=== PATIENT | female | born 1990 | race Caucasian/White ===

== ENCOUNTER 2024-02-09 12:13 | Emergency (ER) | payer OTHER, SELFPAY ==
[2024-02-09 12:48] VITALS: BP 143/84; PULSE 91; RESP 18; TEMP 36.6; O2SAT 96; BMI 23.8
--- NOTE | 2024-02-09 15:48 | ED_ITS ---
HPI - Allergic Reaction <Kaylee Diaz PA-C - Last Filed: 02/09/24 19:54> General Chief complaint: Allergic Reaction Stated complaint: allergic reaction, hives Time Seen by Provider: 02/09/24 15:48 Source: patient Mode of arrival: Ambulatory History of Present Illness HPI narrative: Ms. Nowak is a pleasant 34-year-old female with no reported past medical history who presents to the emergency department for hives x4 days. Patient reports since Wednesday she has had intermittent hives develop on her neck, face, arms, legs, groin with no known allergic trigger. States that she was evaluated at [facility] twice and was initially prescribed prednisone but it was discontinued after the 3rd day due to the resolution of her symptoms. Today she returns to the emergency department for return of the hives. At this time she describes pruritic red rash on the back of her neck, right groin, left elbow, under left eye. She denies any new medications, foods, products or other environmental exposures. She is allergic to cat hair but no other known allergies. She denies any shortness of breath, difficulty breathing, mucous membrane involvement or oral swelling. Related Data Home Medications Medication Instructions Recorded Confirmed diphenhydramine HCl 50 mg capsule 25 mg PO BEDTIME 02/09/24 02/09/24 doxepin 10 mg capsule 10 mg PO Q6H PRN itch 02/09/24 02/09/24 Previous Rx's Medication Instructions Recorded epinephrine 0.3 mg/0.3 mL 0.3 mg (0.3 mL) IM Q5-15M PRN 02/09/24 injection, auto-injector anaphylaxis #2 ea Allergies Allergy/AdvReac Type Severity Reaction Status Date / Time cat dander Allergy Verified 02/09/24 12:51 Review of Systems <Kaylee Diaz PA-C - Last Filed: 02/09/24 19:54> Review of Systems ROS Unobtainable: All systems reviewed & are unremarkable except as noted in HPI and below Patient History <Kaylee Diaz PA-C - Last Filed: 02/09/24 19:54> Social History Smoking Status: Never smoker Smoking Status: Never smoker alcohol intake frequency: other Substance Use Type: does not use Exam <Kaylee Diaz PA-C - Last Filed: 02/09/24 19:54> Narrative Exam Narrative: GENERAL: 34 year old patient appears stated age. Well-developed patient, in no acute distress. HEAD: Atraumatic. Normocephalic. EYES: 1cm patch of urticaria below L eye. ENT: Oropharynx widely patent. No oropharyngeal lesions. NECK: Trachea midline. Non tender CARDIOVASCULAR: Regular rate and rhythm. RESPIRATORY: Clear to auscultation. Breath sounds equal bilaterally. No wheezes, rales, or rhonchi. EXTREMITIES: No edema or joint tenderness. NEURO: AOx3. SKIN: Urticaria on back of neck, left antecubital fossa, right lower quadrant abdomen. No lice or nits noted throughout scalp. Initial Vital Signs Initial Vital Signs: Vital Signs Temperature 98 F 02/09/24 12:48 Pulse Rate 91 H 02/09/24 12:48 Respiratory Rate 18 02/09/24 12:48 Blood Pressure 143/84 H 02/09/24 12:48 Pulse Oximetry 96 02/09/24 12:48 Oxygen Delivery Method Room Air 02/09/24 12:48 <Ese Pina MD - Last Filed: 02/14/24 07:12> Initial Vital Signs Initial Vital Signs: Vital Signs Temperature 98 F 02/09/24 12:48 Pulse Rate 91 H 02/09/24 12:48 Respiratory Rate 18 02/09/24 12:48 Blood Pressure 143/84 H 02/09/24 12:48 Pulse Oximetry 96 02/09/24 12:48 Oxygen Delivery Method Room Air 02/09/24 12:48 Course <Kaylee Diaz PA-C - Last Filed: 02/09/24 19:54> Orders Ordered: Discontinued Medications Diphenhydramine HCl (Diphenhydramine 25 Mg Tablet) 25 mg PO NOW ONE Stop: 02/09/24 16:09 Last Admin: 02/09/24 16:18 Dose: 25 mg Documented By: PEI Famotidine (Famotidine 20 Mg Tablet) 20 mg PO DIRECTED ONE Stop: 02/09/24 16:09 Last Admin: 02/09/24 16:18 Dose: 20 mg Documented By: EPI Prednisone (Prednisone 20 Mg Tablet) 40 mg PO NOW ONE Stop: 02/09/24 16:09 Last Admin: 02/09/24 16:19 Dose: 40 mg Documented By: SB Vital Signs Vital signs: Vital Signs - 8 hr 02/09/24 12:48 02/09/24 16:25 Temperature 98 F Pulse Rate 91 H 76 Respiratory Rate 18 18 Blood Pressure 143/84 H 140/73 Pulse Oximetry 96 97 Oxygen Delivery Method Room Air Room Air <Ese Pina MD - Last Filed: 02/14/24 07:12> Orders Ordered: Discontinued Medications Diphenhydramine HCl (Diphenhydramine 25 Mg Tablet) 25 mg PO NOW ONE Stop: 02/09/24 16:09 Last Admin: 02/09/24 16:18 Dose: 25 mg Documented By: SB Famotidine (Famotidine 20 Mg Tablet) 20 mg PO DIRECTED ONE Stop: 02/09/24 16:09 Last Admin: 02/09/24 16:18 Dose: 20 mg Documented By: SB Prednisone (Prednisone 20 Mg Tablet) 40 mg PO NOW ONE Stop: 02/09/24 16:09 Last Admin: 02/09/24 16:19 Dose: 40 mg Documented By: SB Vital Signs Vital signs: Vital Signs - 8 hr 02/09/24 12:48 02/09/24 16:25 Temperature 98 F Pulse Rate 91 H 76 Respiratory Rate 18 18 Blood Pressure 143/84 H 140/73 Pulse Oximetry 96 97 Oxygen Delivery Method Room Air Room Air MDM - Allergic Reaction <Kaylee Diaz PA-C - Last Filed: 02/09/24 19:54> MDM Narrative Medical decision making narrative: 34-year-old female presents to the emergency department for hives x4 days. Differential diagnosis includes but is not limited to allergic reaction, urticaria, contact dermatitis, perioral dermatitis, seborrheic dermatitis, etc.. On exam patient is in no acute distress, nontoxic appearing, vital signs within normal limits. No signs of anaphylaxis or respiratory distress. We will treat patient with Benadryl, Pepcid, prednisone. On repeat exam, Patient had improvement in symptoms. She was prescribed additional 4 days of prednisone in addition to Pepcid. She already has Benadryl if needed. Recommended she take it once daily allergy pill that is less drowsy than Benadryl such as Zyrtec. We discussed avoiding any potential triggers such as scented products. I also recommended she trial a ketoconazole shampoo/body wash the setting that her symptoms could be related to a seborrheic dermatitis. Advised she follow up with the primary care doctor and liquefaction and regasification helper for further evaluation. She was prescribed 2 EpiPen if needed for anaphylaxis type symptoms. Patient is feeling better, agreeable to the plan, all questions answered, stable for discharge. Discharge Plan Departure Patient Disposition: Home Clinical Impression: Urticaria Instructions: DI for Hives Activity Restrictions/Additional Instructions: Please use a KETOCONAZOLE shampoo for your scalp and body once daily. Complete the full course of steroids and take a daily allergy pill such as Zyrtec, Claritin, or Gail. Please follow up with your primary care doctor and an liquefaction and regasification helper for further evaluation. Return to the ER for any new or worsening symptoms. Prescriptions: New epinephrine 0.3 mg/0.3 mL auto-injector 0.3 mg IM Q5-15M PRN (Reason: anaphylaxis) Qty: 2 0RF Rx Instructions: do not exceed 3 doses per episode No Action doxepin 10 mg capsule 10 mg PO Q6H PRN (Reason: itch) diphenhydramine HCl [Benadryl] 50 mg Capsule 25 mg PO BEDTIME Referrals: Provider,Helio BLANCAS [Primary Care Provider] - Stand Alone Forms: Patient Portal/API/Survey, Work Release Note ED Sign-out <Ese Pina MD - Last Filed: 02/14/24 07:12> Cosign ED Attending Johnathon Attestation: I was immediately available in the department for consultation throughout this patient's visit. Ese Pina MD
[2024-02-09] MEDS: FAMOTIDINE 20 MG TABLET PO (16:18)
[2024-02-09] MEDS: diphenhydrAMINE 25 MG TABLET PO (16:18)
[2024-02-09] MEDS: predniSONE 20 MG TABLET 40 MG PO (16:19)
[2024-02-09 16:25] VITALS: BP 140/73; PULSE 76; RESP 18; O2SAT 97
== END 2024-02-09 16:56 | disposition home or self-care (01) ==
PROVIDERS: Emergency Provider Physician Assistant
DX: L50.9 Urticaria, unspecified (principal)
CPT/HCPCS: 99283; A9270